=== PATIENT | female | born 1980 | race Caucasian/White ===

== ENCOUNTER 2016-08-14 17:50 | Emergency (ER) | payer OTHER ==
[2016-08-14] MEDS ORDERED: HYDROCODON/IBUPROFEN 7.5/200MG TABLET. PO ONE (19:15)
--- NOTE | 2016-08-14 19:45 | PHYS DOC ---
Past Medical History Past Medical History: High Cholesterol, Heart Disease Additional Past Medical Histor: tricuspid valve regurg, grade 5 murmur, PKD Past Surgical History: Alcohol Use: None Drug Use: None Adult General Chief Complaint Chief Complaint: LOWEREXTREMITY INJURY HPI HPI Patient is a 36 year old female who presents with left lateral lower leg pain after falling just prior to arrival. Patient reports that she slipped on a piece of plastic laying on the floor and fell. She felt a pop in the mid lower leg. She was able to walk up the steps in her home, however has been unable to bear weight since then. She denies any other injuries with her fall. Her PCP is Dr. Griggs. Review of Systems Review of Systems Constitutional: Denies fever or chills. [] Musculoskeletal: Denies back pain or joint pain. Reports left lower leg pain. Integument: Denies rash or skin lesions. Denies laceration or abrasion. Reports mild ecchymosis. Neurologic: Denies headache, focal weakness or sensory changes. Denies loss of consciousness. Current Medications Current Medications Current Medications Medications (Trade) Dose Ordered Sig/Jose Angel Start Time Stop Time Status Last Admin Dose Admin Hydrocodone Bitartrate/ Ibuprofen (Vicoprofen 7.5-200) 1 tab 1X ONCE 08/14/16 19:15 08/14/16 19:16 DC 08/14/16 19:25 1 TAB Allergies Allergies Allergies Coded Allergies Type Severity Reaction Last Updated Verified acetaminophen Allergy Unknown 08/14/16 Yes hydrocodone Allergy Unknown CAN TOLERATE VICOPROFEN, JUST NOT LORTAB SPECIFICALLY 08/14/16 Yes Physical Exam Physical Exam Constitutional: Well developed, well nourished, no acute distress, non-toxic appearance. [] HENT: Normocephalic, atraumatic, oropharynx moist. [] Eyes: PERRLA, EOMI, conjunctiva normal, no discharge. [] Skin: Warm, dry, no erythema, no rash. There is minimal ecchymosis over the left fibula mid shaft. Back: No midline tenderness, no CVA tenderness. [] Extremities: Lateral left lower leg tenderness, ROM intact, minimal edema. 2+ DP and PT pulses. Less than 2 second capillary refill in the toes distally. Light touch sensation intact in the toes distally. Full range of motion of the knee, ankle, and foot without tenderness. Neurologic: Alert and oriented X 3, normal motor function, normal sensory function, no focal deficits noted. [] Psychologic: Affect normal, judgement normal, mood normal. [] Current Patient Data Vital Signs Vital Signs Date Time Temp Pulse Resp B/P Pulse Ox O2 Delivery O2 Flow Rate FiO2 08/14/16 19:25 Room Air 08/14/16 18:15 89 22 99 EKG EKG [] Radiology/Procedures Radiology/Procedures There is a fracture of the distal fibula without significant displacement. Course & Med Decision Making Course & Med Decision Making Pertinent Labs and Imaging studies reviewed. (See chart for details) Patient presents with left lower leg pain after fall just prior to arrival. On exam, she is neurovascularly intact without evidence of compartment syndrome. X- ray shows fracture of the left distal fibula. She is placed in an Ortho-Glass stirrup splint by groundwater monitoring technician. After splint application and she remains neurovascularly intact without evidence of compartment syndrome. She is provided with crutches for symptom evaluation. She is given contact information for orthopedics for follow-up. She is discharged home with prescription for Vicoprofen. Return precautions were discussed. She verbalizes understanding and agrees with plan. Dragon Disclaimer Dragon Disclaimer This electronic medical record was generated, in whole or in part, using a voice recognition dictation system. Departure Departure Impression: Primary Impression: Fibula fracture Disposition: 01 HOME, SELF-CARE Condition: STABLE Referrals: SERGIO JUAREZ MD Patient Instructions: Fibular Fracture, Ankle, Adult, Undisplaced, Treated with Immobilization, Splint Care, [id number] Additional Instructions: Your fibula bone is broken your of the ankle. You have been placed into a splint to immobilize the injury. Please leave the splint on and keep it dry until follow-up with orthopedics. Please call the orthopedic doctor listed below in the morning to set up a follow -up appointment. Please use the provided crutches for nonweightbearing. Please take the prescribed pain medication as directed. Do not drive or operate heavy machinery while taking pain medication. Return to emergency department if you have any new or concerning symptoms. Scripts Hydrocodone/Ibuprofen (Hydrocodone-Ibuprofen 7.5-200 )1 Each Tablet1 Tab PO PRN Q6HRS PRN PAIN #20 TAB Ref 0 Prov:CINDY RUFF 08/14/16 Problem Qualifiers Primary Impression: Fibula fracture Encounter type: initial encounter Fibula location: distal Fracture type: closed Fracture morphology: unspecified fracture morphology Laterality: left Qualified Code: S82.832A - Other fracture of upper and lower end of left fibula, initial encounter for closed fracture CINDY RUFF Aug 14, 2016 19:45
[2016-08-14] MEDS ORDERED: HYDR-79 PO (20:29)
[2016-08-14] MEDS ORDERED: OXYC-323 PO (20:37)
--- NOTE | 2016-08-15 15:06 | RAD ---
Left tibia and fibula, 2 views, 08/14/2016: History: Fall, pain There is an oblique fracture of the distal fibular shaft. There is no significant displacement or angulation at the fracture site. No other fracture or bony abnormality is detected. IMPRESSION: Nondisplaced distal fibular fracture Note: The findings were called to personnel in the [facility] ER at 3:00 PM on 08/15/2015.
== END 2016-08-14 20:40 | disposition home or self-care (01) ==
LOC: ER 17:50
DX: S82.832A Other fracture of upper and lower end of left fibula, initial encounter for closed fracture (principal); E78.00 Pure hypercholesterolemia, unspecified; Q61.3 Polycystic kidney, unspecified; Z88.5 Allergy status to narcotic agent; Z88.8 Allergy status to other drugs, medicaments and biological substances; W01.0XXA Fall on same level from slipping, tripping and stumbling without subsequent striking against object, initial encounter; Y93.89 Activity, other specified; Y92.89 Other specified places as the place of occurrence of the external cause; Y99.8 Other external cause status
CPT/HCPCS: 29515; 73590; 99284-25